=== PATIENT | female | born 1970 | race Caucasian/White ===

== ENCOUNTER 2017-09-20 11:30 | Day surgery (SDC) | payer OTHER ==
--- NOTE | 2017-09-09 08:08 | HP ---
PREOPERATIVE HISTORY AND PHYSICAL: DATE OF ADMISSION/SURGERY: 09/20/17 [facility] DATE OF OFFICE VISIT: 09/07/17 ATTENDING SURGEON: Jose Lechuga MD * (DICTATED BY LOUIS DUMAS) PROCEDURE: Right knee arthroscopy, partial meniscectomy. CHIEF COMPLAINT: Right knee pain. HISTORY OF PRESENT ILLNESS: Chantal is a 47-year-old female who presents to the clinic for followup of her right knee lateral meniscal tear. She has failed conservative measures to include injections and therefore agreed to undergo a right knee arthroscopy with partial meniscectomy with Dr. Lechuga on 09/20/17. PAST MEDICAL HISTORY: Headache, irritable bowel syndrome, anemia, peptic ulcer disease. PAST SURGICAL HISTORY: , bilateral compartment release, left knee meniscal repair, umbilical hernia. Denies prior complications with anesthesia. MEDICATIONS: 1. Tramadol 50 mg 1 by mouth 3 times a day as needed for pain. 2. Ketorolac 10 mg 1 by mouth every 6 hours as needed. 3. Multivitamin daily. 4. Vitamin B daily. 5. Probiotic daily. 6. Calcium daily. 7. Garlic oofz-efl-fdkpspd daily. 8. Glucosamine daily. 9. Tumeric daily. 10. Krill oil daily. 11. Resveratrol daily. 12. Alpha lipoic acid daily. 13. Fish oil daily. 14. Niacin daily. 15. Excedrin yncd-ufk-clbqibo by mouth as needed. 16. Peppermint oil. 17. Josiane and fennel daily. 18. Desvenlafaxine succinate 25 mg 1 by mouth daily. ALLERGIES: No known drug allergies. FAMILY HISTORY: Positive for heart disease. SOCIAL HISTORY: She denies smoking. She reports occasional use. She denies illegal drug use. REVIEW OF SYSTEMS: A 14-point review of systems was reviewed with the patient. Positive for current complaint, otherwise negative. Denies fevers, chills, chest pain, shortness of breath, history of bleeding disorder, history of DVT or PE. PHYSICAL EXAMINATION GENERAL: Well-developed, well-nourished 47-year-old female, in no acute distress. Alert and oriented x3. Appropriate mood and affect. Appropriate balance and coordination of the lower extremities. VITAL SIGNS: Height 63.5, weight 200. Blood pressure 118/72, respiratory rate 18, BMI 34.9. HEENT: Normocephalic, atraumatic. PERRLA. Throat: Clear. NECK: Supple. PULMONARY: Lungs are clear to auscultation bilaterally. No wheezing, rhonchi, or rales. CARDIO: Regular rate and rhythm. S1, S2. No murmurs, gallops, or rubs. No edema. ABDOMEN: Positive bowel sounds, soft, nontender. NEURO: Alert and oriented x3. Cranial nerves grossly intact. Sensation is intact to light touch. MUSCULOSKELETAL: Right lower extremity, skin is intact. No warmth or erythema. Mild effusion and tenderness over the lateral joint line. Calf is soft and nontender. +5/5 strength to dorsiflexion and plantar flexion. +2 DP and PT pulses. Sensation intact to light touch distally. DIAGNOSTIC STUDIES: MRI of the right knee revealed lateral meniscal tear. PLAN: The patient is scheduled to undergo a right knee arthroscopy, partial meniscectomy with Dr. Lechuga on 09/20/17. She will follow up in 10 to 14 days postop for followup and suture removal. Percocet will be sent to the patient's pharmacy for postop pain management. LOUIS DUMAS [id number]/[facility] #: [id number] MTDD
[~2017-09-20 11:30] MED LIST: Buffered Lidocaine 0.9% SYRIN* 5 ML/SYR SYRINGE INTRADERM ONE
[2017-09-20] MEDS ORDERED: ceFAZolin 2 GM PREMIX (*) 2 GM/50 ML BAG IVPB ONE (12:00)
[2017-09-20] MEDS ORDERED: Lidocaine 1% MPF* 2 ML VIAL ONE (12:18)
[2017-09-20] MEDS ORDERED: Bupivacaine 0.25% SDV* 30 ML ONE (12:18)
[2017-09-20] MEDS ORDERED: Midazolam* 1 MG/ML 5 ML VIAL (5 MG) ONE (12:46)
[2017-09-20] MEDS ORDERED: fentaNYL* 50 MCG/ML 2 ML VIAL (100 MCG VIAL) ONE (12:46)
[2017-09-20] MEDS ORDERED: Propofol* 10 MG/ML 20 ML BTL IV PUSH ONE (12:46)
[2017-09-20] MEDS ORDERED: Ondansetron INJ* 2 MG/ML VIAL ONE (12:46)
[2017-09-20] MEDS ORDERED: Dexamethasone IV* 4 MG/ML 1 ML (4 MG) ONE (12:46)
[2017-09-20] MEDS ORDERED: fentaNYL* 50 MCG/ML 2 ML VIAL (100 MCG VIAL) IV PRN (13:19)
[2017-09-20] MEDS ORDERED: DiMENhydriNATE IV* 50 MG/ML VIAL IV PUSH PRN (13:19)
[2017-09-20] MEDS ORDERED: Ondansetron INJ* 2 MG/ML VIAL IV PRN (13:19)
[2017-09-20] MEDS ORDERED: HYDROcodone/ACETAMIN 5-325 MG* 1 TAB PO PRN (13:19)
[2017-09-20] MEDS ORDERED: HYDROmorphone INJ* 1 MG/ML CARPUJECT SYRINGE IV PRN (13:19)
[2017-09-20] MEDS ORDERED: oxyCODONE/Acetamin 5/325 MG* TAB PO PRN (13:19)
[2017-09-20] MEDS ORDERED: Naloxone* 0.4 MG/ML 1 ML VIAL IV PRN (13:19)
[2017-09-20] MEDS ORDERED: Ketorolac INJ* 30 MG/ML 1 ML VIAL ONE (13:30)
[2017-09-20 14:23] VITALS: BP 121/58
--- NOTE | 2017-09-21 13:11 | OP ---
CC: PCP, Lu Grande MD * DATE OF OPERATION: 09/20/17 - [facility] DATE OF : 70 SURGEON: Jose Lechuga MD CHEMISTRY LABORATORY TECHNICIAN: None available. ANESTHESIOLOGIST: Shady Brown MD PRE-OP DIAGNOSIS: Right knee lateral meniscus tear. POST-OP DIAGNOSES: Right knee lateral meniscus tear, medial meniscal fraying, and chondrosis of the patella as well as the lateral plateau. OPERATIVE PROCEDURE: Right knee arthroscopy with partial lateral meniscectomy, partial medial meniscectomy, chondroplasty of the patella as well as the lateral compartment. INDICATIONS: Chantal Aguila is a 47-year-old female who has had persistent catching, locking of the right lateral meniscus. She has initially presented with an acute meniscus tear, which she tried extensive amount of conservative treatment including physical therapy, anti-inflammatories, and injection. She has continued to have persistent mechanical symptoms and has failed conservative treatment. She had an MRI that had findings consistent with lateral meniscus tear with meniscal cyst. Risks and benefits of surgery were discussed at length that include but are not limited to bleeding, infection, damage to nerves, vessels, surrounding structures, wound nonhealing, persistent pain, need for further surgery, scarring, stiffness, incomplete relief of symptoms, and risk of anesthesia. COMPLICATIONS: None. ESTIMATED BLOOD LOSS: Minimal. DESCRIPTION OF PROCEDURE: The patient was greeted in the preoperative area by the attending surgeon. The correct extremity was marked and consent was confirmed. The patient was then brought back to the operating suite. She was placed in the supine position on the operating table. She underwent general anesthesia and LMA intubation after which she was appropriately positioned on the bed. An unsterile tourniquet was placed high on the proximal thigh, lateral post was positioned. The right leg was prepped and draped in the usual sterile fashion with chlorhexidine soap scrub and alchocol wipe and a final prep of chloroprep. After an appropriate surgical pause indicating site, side, and administration of antibiotics, the knee was intra-articularly injected with 1% lidocaine with epi. The lateral portal was made with an 11 blade and the scope was introduced into the joint. There was abundant synovitis anteriorly, which prevented easy passage into the suprapatellar pouch; therefore, the anteromedial portal was made in outside fashion using 18-gauge needle for needle localization. Shaver was used to debride excessive fat pad and the synovitis anteriorly. This was also found to be laterally based. The shaver was used to debride the synovitis , then attention was directed to the notch. The ACL and PCL were intact, but were very injected and inflamed. The scope was positioned in medial compartment and the femoral condyle medial plateau had grade 0 to 1 changes. There were no unstable flaps of cartilage, the meniscus was examined. In the body of the meniscus, there was some mild fraying with a small early parrot- beak tearing. This was then debrided back using nirav and biters. Once this was done, the root was assessed and found to be intact. The remainder of the meniscus was intact. The knee was then placed in figure-of-4 position and there was synovitis present. There was evidence of grade 3 changes to the cartilage to lateral plateau with unstable flaps. The shaver was used to debride this back. Once the chondroplasty was completed, attention was directed to the meniscus. There was a large radial split tear along with an interstitial tear on the anterior portion of the meniscus. The biters were used to trim back the unstable flaps to the rim and the side biter was also used to remove the flaps more anteriorly based. The shaver was used to debride it back. The root was also intact but had some partial tearing, which was shaved back. An 18-gauge needle was used to attempt to decompress the parameniscal cyst, but no large cystic release was obtained. Once the partial meniscectomy was done and there was no evidence of unstable flaps, the attention was directed again to the lateral plateau and the shaver was used to debride back the unstable flaps. The lateral femoral condyle had grade 2 changes. At this point, the knee was placed in full extension. The medial and lateral gutters were examined. There were no loose bodies evident. The patellofemoral joint was examined. There was ridge of chondrosis, grade 2 changes along the trochlea. The patella had an area with evidence of grade 2 changes with unstable flaps, which were debrided back using the shaver. This was on the lateral aspect of the patella. The remainder of the patella had grade 0 to 1 changes. All fluid and debris were removed from the knee. The knee was thoroughly lavaged to remove any loose debris. The wounds were copiously irrigated with sterile saline. The portals were closed with 3-0 nylon in interrupted fashion. The knee was intraarticularly injected with 0.25% Marcaine plain. Sterile dressings were applied. She was awoken from anesthesia and transferred to the PACU in stable condition. Cryo/Cuff was also applied. POSTOPERATIVE PLAN: She will be weightbearing as tolerated with crutches. She will be discharged on pain medication. She will be allowed knee range of motion as tolerated. DVT prophylaxis is considered, but deferred due to no previous personal or family history. I will send her out with pain medication including Tylenol, ibuprofen with oxycodone for breakthrough. I will see the patient back in 14 days. [id number]/[facility] #: [id number] LURDES
== END 2017-09-20 14:25 | disposition home or self-care (01) ==
LOC: OREAST 11:30
PROVIDERS: ATTEND Orthopaedic Surgery
DX: M23.200 Derangement of unspecified lateral meniscus due to old tear or injury, right knee (principal); M23.203 Derangement of unspecified medial meniscus due to old tear or injury, right knee; M93.961 Osteochondropathy, unspecified, right lower leg; D64.9 Anemia, unspecified; K58.9 Irritable bowel syndrome, unspecified; K27.9 Peptic ulcer, site unspecified, unspecified as acute or chronic, without hemorrhage or perforation
CPT/HCPCS: 81025; J0690; J1100; J1885; J2250; J2405; J2704; J3010